=== PATIENT | female | born 1980 | race Two or more races ===

== ENCOUNTER 2020-03-22 07:00 | Day surgery (SDC) | payer OTHER ==
[~2020-03-22] VITALS: Ht 157.5 cm; Wt 83.0 kg
--- NOTE | 2020-03-22 06:26 | NUR ---
PACIENTE QUE LLEGA AMBULANDO EN COMPANIA DE ESPOSO ENVIADA POR EL DR. ZAPIEN. POR ABORTO INCOMPLETO.
[~2020-03-22 07:00] MED LIST: LABETALOL HCL100 MG
--- NOTE | 2020-03-22 07:53 | NUR ---
PACIENTE ALERTA Y ORIENTADA EN ELLEN LIZ ESFERAS. SE ORIENTA A PACIENTE SOBRE PROCEDIMIENTO Y TX, REFIERE ENTENDER. SE EXTRAE MUESTRAS DE LABORATORIO CON MEDIDAS ASEPTICAS Y SE COLOCA IVF'S WEST ORDEN MEDICA.
[2020-03-22] MEDS ORDERED: PRENATAL + DHA1 EAC1 PO (08:11)
== END 2020-03-22 13:00 | disposition home or self-care (01) ==
LOC: CIR.AMB 07:00 → O/R 07:56 → SEC-K 07:56 → ER 07:56 → SEC-K 08:49 → O/R 08:49 → EDSTATUS 12:45 → CIR.AMB 13:00 → O/R 15:18 → OB/GYN 15:18 → SEC-K 15:18 → OB/GYN 15:34 → O/R 15:34
PROVIDERS: ATTEND Obstetrics & Gynecology
DX: O02.1 Missed abortion (principal); Z20.828 Contact with and (suspected) exposure to other viral communicable diseases